=== PATIENT | female | born 1965 | race Caucasian/White ===

== ENCOUNTER → 2021-07-11 | Outpatient (CLI) | payer BC | LOC: KOH-I 15:09 | DX: M75.41 Impingement syndrome of right shoulder (principal); M75.121 Complete rotator cuff tear or rupture of right shoulder, not specified as traumatic; S43.431A Superior glenoid labrum lesion of right shoulder, initial encounter; M19.011 Primary osteoarthritis, right shoulder | CPT/HCPCS: 73221 ==